=== PATIENT | male | born 1950 | race Caucasian/White ===

== ENCOUNTER → 2016-06-09 | Outpatient (CLI) | payer MEDICARE, OTHER ==
[~2016-06-09] MED LIST: ASPIRIN CHEWABL81 MG PO; CORDARONE 200M200 MG PO; COREG 3.125M3.125 MG PO; FLOMAX 0.4 MG0.4 MG PO; GLUCOPHAGE 500500 MG PO; HABITROL 7 MG PA1 EA TD; LANOXIN TAB 00.25 MG PO; LASIX20 MG PO; LIPITOR20 MG PO; LISINOPRIL2.5 MG PO; NITROSTAT 0.40.4 MG SL; PLAVIX 75 MG TA75 MG PO; SAVAYSA60 MG PO
== END ==
LOC: LAB 09:00
DX: Z51.81 Encounter for therapeutic drug level monitoring (principal); Z79.01 Long term (current) use of anticoagulants
CPT/HCPCS: 36415; 85610

== ENCOUNTER 2020-08-18 18:07 | Inpatient (IN) | payer MEDICARE, OTHER ==
[~2020-08-18] VITALS: Ht 177.8 cm; Wt 103.9 kg
[~2020-08-18 18:07] MED LIST changes: +ALBUTEROL0.63 MG/3 INH; +COUMADIN5 MG PO; +COUMADIN7.5 MG PO; +LEVAQUIN500 MG PO; +TYLENOL W/CODEIN1 E1 PO
[2020-08-18 18:53] LABS: HEMOGLOBIN 16.4 gm/dl (14.0-17.5); RED BLOOD COUNT 5.24 M/UL (4.20-5.50); WHITE BLOOD COUNT 9.2 K/UL (4.5-11.0)
[2020-08-18 19:13] LABS: BUN/CREATININE RATIO 17 (0-10)
[2020-08-19] MEDS ORDERED: RANEXA500 MG PO (00:21)
[2020-08-19] MEDS ORDERED: ISOSORBIDE MONO30 MG PO (00:22)
[2020-08-19] MEDS ORDERED: GLIPIZIDE ER5 MG PO (00:23)
[2020-08-19] MEDS ORDERED: ELIQUIS5 MG PO (00:24)
[2020-08-19] MEDS ORDERED: MULTIVITAMIN1 EACH PO (00:25)
[2020-08-19] MEDS ORDERED: AMIODARONE HCL200 MG PO ×2 (11:35→11:38)
== END 2020-08-19 13:07 | disposition home or self-care (01) | DRG 309 ==
LOC: ER1 18:07 → PROG CARE 22:56 → CDU 22:56 → PROG CARE 08-19 00:16
PROVIDERS: Physician Assistant Medical; ADMIT Internal Medicine
DX: I49.01 Ventricular fibrillation (principal); I50.22 Chronic systolic (congestive) heart failure; C18.9 Malignant neoplasm of colon, unspecified; I11.0 Hypertensive heart disease with heart failure; I25.5 Ischemic cardiomyopathy; E11.9 Type 2 diabetes mellitus without complications; I25.10 Atherosclerotic heart disease of native coronary artery without angina pectoris; E78.5 Hyperlipidemia, unspecified; Z20.822 Contact with and (suspected) exposure to COVID-19; F17.210 Nicotine dependence, cigarettes, uncomplicated; I48.19 Other persistent atrial fibrillation; J44.9 Chronic obstructive pulmonary disease, unspecified; Z95.5 Presence of coronary angioplasty implant and graft; Z79.01 Long term (current) use of anticoagulants; Z90.49 Acquired absence of other specified parts of digestive tract; Z79.4 Long term (current) use of insulin
CPT/HCPCS: 36415; 70450; 71045; 80053; 81001; 82009; 82550; 82553; 82962; 83605; 83735; 83874; 84439; 84443; 84484; 85025; 93005; 99285; G0378; J7030; U0002

== ENCOUNTER → 2020-10-28 | Outpatient (CLI) | payer MEDICARE, OTHER ==
[~2020-10-28] MED LIST changes: +AMIODARONE HCL200 MG PO; +ELIQUIS5 MG PO; +GLIPIZIDE ER5 MG PO; +ISOSORBIDE MONO30 MG PO; +MULTIVITAMIN1 EACH PO; +RANEXA500 MG PO
== END ==
LOC: HEART 5 08:23
DX: I48.19 Other persistent atrial fibrillation (principal); Z79.899 Other long term (current) drug therapy; R06.02 Shortness of breath
CPT/HCPCS: 94060; 94729

== ENCOUNTER → 2020-12-13 | Outpatient (CLI) | payer MEDICARE, OTHER | LOC: HEART 5 08:00 | DX: I20.9 Angina pectoris, unspecified (principal) | CPT/HCPCS: 78452; A9502; J2785 ==

== ENCOUNTER 2021-06-02 01:20 | Inpatient (IN) | payer MEDICARE, OTHER ==
[~2021-06-02] VITALS: Ht 177.8 cm; Wt 108.4 kg
[~2021-06-02 01:20] MED LIST changes: -COREG 3.125M3.125 MG PO; +COREG6.25 MG PO; +LASIX40 MG PO; +METFORMIN HCL1000 MG PO
[2021-06-02 02:30] LABS: HEMOGLOBIN 8.2 gm/dl (14.0-17.5); RED BLOOD COUNT 2.79 M/UL (4.20-5.50); WHITE BLOOD COUNT 7.3 K/UL (4.5-11.0)
[2021-06-02 02:36] LABS: BUN/CREATININE RATIO 15 (0-10)
[2021-06-02] MEDS ORDERED: FLONASE 0.05% N16 GM (10:02)
[2021-06-02] MEDS ORDERED: FLOMAX 0.4 MG0.4 MG PO (10:03)
[2021-06-02] MEDS ORDERED: FUROSEMIDE40 MG PO (10:04)
[2021-06-02] MEDS ORDERED: MELATONIN3 MG PO (10:05)
[2021-06-02] MEDS ORDERED: ADULT LOW DOSE81 MG PO (10:05)
[2021-06-02] MEDS ORDERED: MAG-OX 400 TAB400 MG PO (10:06)
[2021-06-03 03:13] LABS: HEMOGLOBIN 7.5 gm/dl (14.0-17.5); RED BLOOD COUNT 2.59 M/UL (4.20-5.50); WHITE BLOOD COUNT 6.5 K/UL (4.5-11.0)
[2021-06-04 03:55] LABS: HEMOGLOBIN 7.9 gm/dl (14.0-17.5); RED BLOOD COUNT 2.74 M/UL (4.20-5.50); WHITE BLOOD COUNT 6.6 K/UL (4.5-11.0)
[2021-06-05 04:50] LABS: HEMOGLOBIN 7.7 gm/dl (14.0-17.5); RED BLOOD COUNT 2.71 M/UL (4.20-5.50); WHITE BLOOD COUNT 6.5 K/UL (4.5-11.0)
[2021-06-05] MEDS ORDERED: LOPRESSOR 25 MG25 MG PO (10:05)
[2021-06-05] MEDS ORDERED: LASIX40 MG PO (10:05)
[2021-06-05] MEDS ORDERED: LIPITOR40 MG PO (10:05)
[2021-06-05] MEDS ORDERED: POTASSIUM CHLO20 ME1 PO (10:05)
== END 2021-06-05 11:17 | disposition home health service (06) | DRG 291 ==
LOC: ER1 01:20 → PROG CARE 04:51 → CDU 04:51 → PROG CARE 13:56
PROVIDERS: Internal Medicine; Student in an Organized Health Care Education/Training Program; ADMIT Internal Medicine
PROC: B24BZZZ Ultrasonography of Heart with Aorta (ICD-10-PCS; principal; 2021-06-02)
DX: I13.0 Hypertensive heart and chronic kidney disease with heart failure and stage 1 through stage 4 chronic kidney disease, or unspecified chronic kidney disease (principal); I50.23 Acute on chronic systolic (congestive) heart failure; J96.01 Acute respiratory failure with hypoxia; I48.20 Chronic atrial fibrillation, unspecified; J90 Pleural effusion, not elsewhere classified; Z20.822 Contact with and (suspected) exposure to COVID-19; N18.30 Chronic kidney disease, stage 3 unspecified; D63.1 Anemia in chronic kidney disease; E11.22 Type 2 diabetes mellitus with diabetic chronic kidney disease; I25.5 Ischemic cardiomyopathy; Z96.659 Presence of unspecified artificial knee joint; I25.10 Atherosclerotic heart disease of native coronary artery without angina pectoris; E66.9 Obesity, unspecified; Z95.1 Presence of aortocoronary bypass graft; Z79.01 Long term (current) use of anticoagulants; Z85.038 Personal history of other malignant neoplasm of large intestine; Z98.49 Cataract extraction status, unspecified eye; Z82.49 Family history of ischemic heart disease and other diseases of the circulatory system; Z83.3 Family history of diabetes mellitus; Z95.810 Presence of automatic (implantable) cardiac defibrillator; Z87.891 Personal history of nicotine dependence; Z86.16 Personal history of COVID-19; Z68.31 Body mass index [BMI] 31.0-31.9, adult
CPT/HCPCS: ECHO; 36415; 36600; 71045; 71250; 80048; 80053; 80061; 82550; 82553; 82728; 82803; 82962; 83036; 83540; 83550; 83605; 83735; 83880; 84484; 84550; 85025; 85045; 85610; 93005; 93306; 94640; 94664; 94760; 96374; 97161; 99285; J1205; J1940; J3475; U0002

== ENCOUNTER → 2021-06-15 | Outpatient (CLI) | payer MEDICARE, OTHER ==
[~2021-06-15] MED LIST changes: +ADULT LOW DOSE81 MG PO; +FLONASE 0.05% N16 GM; +FUROSEMIDE40 MG PO; +LIPITOR40 MG PO; +LOPRESSOR 25 MG25 MG PO; +MAG-OX 400 TAB400 MG PO; +MELATONIN3 MG PO; +POTASSIUM CHLO20 ME1 PO
== END ==
LOC: KOH-I 15:52
DX: M25.562 Pain in left knee (principal); M25.462 Effusion, left knee
CPT/HCPCS: 73562

== ENCOUNTER 2021-06-22 17:37 | Emergency (ER) | payer MEDICARE, OTHER ==
[2021-06-22] MEDS ORDERED: HYDROCODON-ACE1 EAC4 PO (20:17)
== END 2021-06-22 20:40 | disposition home or self-care (01) ==
LOC: ER1 17:37
DX: M71.22 Synovial cyst of popliteal space [Baker], left knee (principal); I50.9 Heart failure, unspecified; Z79.01 Long term (current) use of anticoagulants
CPT/HCPCS: 93971; 99283

== ENCOUNTER → 2021-06-24 | Outpatient (CLI) | payer MEDICARE, OTHER ==
[~2021-06-24] MED LIST changes: +HYDROCODON-ACE1 EAC4 PO
== END ==
LOC: KOH-I 10:59
DX: M25.462 Effusion, left knee (principal)
CPT/HCPCS: 73700

== ENCOUNTER 2021-08-15 10:25 | Inpatient (IN) | payer MEDICARE, OTHER ==
[~2021-08-15] VITALS: Ht 177.8 cm; Wt 103.9 kg
[~2021-08-15 10:25] MED LIST changes: +AMOXICILLIN500 MG PO
[2021-08-15 11:41] LABS: HEMOGLOBIN 9.8 gm/dl (14.0-17.5); RED BLOOD COUNT 3.66 M/UL (4.20-5.50); WHITE BLOOD COUNT 6.8 K/UL (4.5-11.0)
[2021-08-15] MEDS ORDERED: PROMETHAZINE12.5 M1 PO (15:51)
[2021-08-15] MEDS ORDERED: ONDANSETRON ODT4 MG PO (15:52)
[2021-08-15] MEDS ORDERED: ALBUTEROL0.63 MG/3 INH (15:55)
[2021-08-15] MEDS ORDERED: RANEXA500 MG PO (15:56)
[2021-08-15] MEDS ORDERED: FLOMAX 0.4 MG0.4 MG PO (15:58)
[2021-08-15] MEDS ORDERED: ROXICODONE5 MG PO (15:59)
[2021-08-15] MEDS ORDERED: TRAMADOL HCL50 MG PO (16:00)
[2021-08-15] MEDS ORDERED: PEPCID AC10 MG PO (16:01)
[2021-08-15] MEDS ORDERED: ALIGN4 MG PO (16:02)
[2021-08-15] MEDS ORDERED: COLACE100 MG PO (16:03)
[2021-08-16 03:18] LABS: RED BLOOD COUNT 3.35 M/UL (4.20-5.50); WHITE BLOOD COUNT 6.6 K/UL (4.5-11.0)
--- NOTE | 2021-08-16 11:57 | NUR ---
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 patient resting comfortably and no cardiac insufficiency noted
[2021-08-17 02:57] LABS: HEMOGLOBIN 8.8 gm/dl (14.0-17.5); RED BLOOD COUNT 3.28 M/UL (4.20-5.50); WHITE BLOOD COUNT 5.9 K/UL (4.5-11.0)
--- NOTE | 2021-08-17 08:26 | NUR ---
informed dr. azevedo of patient urology outpatient appt to be made prior to d/c per dr. loza-he acknowledged
--- NOTE | 2021-08-17 11:13 | NUR ---
PATIENT ROOM AIR SATS 86%.
[2021-08-17] MEDS ORDERED: BUMETANIDE1 MG PO (13:14)
[2021-08-18 06:26] LABS: HEMOGLOBIN 8.7 gm/dl (14.0-17.5); RED BLOOD COUNT 3.24 M/UL (4.20-5.50); WHITE BLOOD COUNT 6.4 K/UL (4.5-11.0)
--- NOTE | 2021-08-18 12:02 | NUR ---
08/18/21 1200 REPORT CALLED TO [facility]
[2021-08-18] MEDS ORDERED: DOXYCYCLINE HY100 M2 PO (12:56)
== END 2021-08-18 13:12 | disposition home health service (06) | DRG 291 ==
LOC: ER1 10:25 → CDU 13:49 → M/S 13:49
PROVIDERS: Internal Medicine; Internal Medicine Nephrology; Nurse Practitioner; Physician Assistant; ADMIT Internal Medicine
DX: I13.0 Hypertensive heart and chronic kidney disease with heart failure and stage 1 through stage 4 chronic kidney disease, or unspecified chronic kidney disease (principal); I50.23 Acute on chronic systolic (congestive) heart failure; I47.2 Ventricular tachycardia; Z20.822 Contact with and (suspected) exposure to COVID-19; N17.9 Acute kidney failure, unspecified; M00.862 Arthritis due to other bacteria, left knee; E78.5 Hyperlipidemia, unspecified; E11.22 Type 2 diabetes mellitus with diabetic chronic kidney disease; D63.1 Anemia in chronic kidney disease; I48.0 Paroxysmal atrial fibrillation; I25.5 Ischemic cardiomyopathy; F17.210 Nicotine dependence, cigarettes, uncomplicated; N18.30 Chronic kidney disease, stage 3 unspecified; I25.10 Atherosclerotic heart disease of native coronary artery without angina pectoris; Z95.5 Presence of coronary angioplasty implant and graft; Z87.442 Personal history of urinary calculi; Z79.01 Long term (current) use of anticoagulants; Z95.810 Presence of automatic (implantable) cardiac defibrillator; Z79.82 Long term (current) use of aspirin; Z90.49 Acquired absence of other specified parts of digestive tract; Z85.038 Personal history of other malignant neoplasm of large intestine; Z98.42 Cataract extraction status, left eye; Z98.41 Cataract extraction status, right eye; Z79.4 Long term (current) use of insulin; I25.2 Old myocardial infarction
CPT/HCPCS: 0240U; 36415; 36600; 71045; 71046; 80048; 80053; 81001; 82550; 82553; 82803; 82962; 83605; 83735; 83880; 84100; 84484; 85025; 85027; 85610; 85652; 85730; 86140; 87040; 93005; 94640; 94664; 94760; 96374; 97116; 97116-GP-CQ; 97161; 99285; J1205; J1940

== ENCOUNTER → 2021-09-28 | Outpatient (CLI) | payer MEDICARE, OTHER ==
[~2021-09-28] MED LIST changes: +ALIGN4 MG PO; +BUMETANIDE1 MG PO; +COLACE100 MG PO; +DOXYCYCLINE HY100 M2 PO; +ONDANSETRON ODT4 MG PO; +PEPCID AC10 MG PO; +PROMETHAZINE12.5 M1 PO; +ROXICODONE5 MG PO; +TRAMADOL HCL50 MG PO
== END ==
LOC: KOH-I 14:21
DX: N50.89 Other specified disorders of the male genital organs (principal); N43.3 Hydrocele, unspecified; N45.1 Epididymitis
CPT/HCPCS: 76870

== ENCOUNTER → 2021-10-28 | Outpatient (CLI) | payer MEDICARE, OTHER ==
[2021-10-28 12:18] LABS: HEMOGLOBIN 10.2 gm/dl (14.0-17.5); RED BLOOD COUNT 4.41 M/UL (4.20-5.50); WHITE BLOOD COUNT 6.7 K/UL (4.5-11.0)
== END ==
LOC: LAB 11:09
DX: N17.9 Acute kidney failure, unspecified (principal); N18.9 Chronic kidney disease, unspecified
CPT/HCPCS: 36415; 80069; 82570; 84156; 85027

== ENCOUNTER → 2021-11-04 | Outpatient (CLI) | payer MEDICARE, OTHER | LOC: LAB 11:52 | DX: N17.9 Acute kidney failure, unspecified (principal); N18.4 Chronic kidney disease, stage 4 (severe) | CPT/HCPCS: 36415; 80048 ==

== ENCOUNTER → 2021-11-17 | Outpatient (CLI) | payer MEDICARE, OTHER ==
[2021-11-17 17:44] LABS: HEMOGLOBIN 12.2 gm/dl (14.0-17.5); RED BLOOD COUNT 4.86 M/UL (4.20-5.50); WHITE BLOOD COUNT 6.5 K/UL (4.5-11.0)
== END ==
LOC: LAB 17:10
PROVIDERS: Internal Medicine Nephrology
DX: N17.9 Acute kidney failure, unspecified (principal); N18.9 Chronic kidney disease, unspecified; D63.1 Anemia in chronic kidney disease
CPT/HCPCS: 80048; 81001; 82340; 82570; 83540; 83550; 84156; 85025

== ENCOUNTER → 2021-11-29 | Outpatient (CLI) | payer MEDICARE, OTHER ==
[2021-11-29 18:50] LABS: HEMOGLOBIN 12.2 gm/dl (14.0-17.5); RED BLOOD COUNT 4.83 M/UL (4.20-5.50); WHITE BLOOD COUNT 6.3 K/UL (4.5-11.0)
== END ==
LOC: LAB 17:22
PROVIDERS: Internal Medicine Nephrology
DX: N17.9 Acute kidney failure, unspecified (principal); N18.9 Chronic kidney disease, unspecified; D63.1 Anemia in chronic kidney disease
CPT/HCPCS: 80048; 81001; 82570; 83540; 83550; 84156; 85025